=== PATIENT | female | born 1950 | race Caucasian/White ===

== ENCOUNTER 2019-02-09 07:47 | Day surgery (SDC) ==
[2019-02-02 11:25] LABS: BASO# 0.03 X1000 (0.0-0.2); BASO% 0.5 % (0.0-0.8); EOS# 0.14 X1000 (0.0-0.7); EOS% 2.3 % (0.0-10.0); HEMATOCRIT 44.1 % (37.0-47.0); HEMOGLOBIN 14.3 g/dL (12.0-16.0); MCH 28.8 PG (27-31); MCHC 32.4 g/dL (33-37); MCV 88.9 FL (81-99); MONO# 0.36 X1000 (0.11-0.59); MONO% 5.8 % (1.7-9.3); MPV 9.9 FL (7.4-10.4); NEUT# 3.54 X1000 (1.4-6.5); NEUT% 57.4 % (42.2-75.2); PLT 334 X1000 (130-400); RBC 4.96 XMIL (4.2-5.4); RDW 13.8 % (11.5-14.5); WBC 6.17 X1000 (4.8-10.8)
--- NOTE | 2019-02-02 11:52 | EKG Report ---
Test Performed on : 02/02/2019 11:06:32 AM Test Reason : pat Blood Pressure : / mmHG Vent. Rate : 067 BPM Atrial Rate : 067 BPM P-R Int : 148 ms QRS Dur : 088 ms QT Int : 416 ms P-R-T Axes : 051 034 056 degrees QTc Int : 439 ms Normal sinus rhythm. Normal ECG No previous ECGs available Confirmed by Roderick KAHN, [place] ([id number]) on 02/03/2019 8:34:34 AM
[2019-02-02 11:58] LABS: AGAP 14; BUN 17 mg/dL (8-22); CHLORIDE 99 mmol/L (98-107); COSMO 283; CREATININE 0.8 mg/dL (0.5-0.9); ESTIMATED GFR > 60; GLUCOSE 105 mg/dL (70-104); POTASSIUM 3.8 mmol/L (3.5-5.1); SODIUM 141 mmol/L (136-145); TCO2 28 mmol/L (25-35)
--- NOTE | 2019-02-08 09:56 | HISTORY AND PHYSICAL ---
HISTORY: The patient is a 69-year-old female who has been seen by our nurse practitioner Morales with worsening pelvic organ prolapse. Patient has been evaluated in the past by Dr. Janay Olivo and was offered pessary management but she has declined this therapy and is wishing to proceed with surgical intervention. She presented to me because of her desire to not be forced into using a pessary. The risks and benefits of sacrocolpopexy and midurethral sling and supracervical hysterectomy were explained at length to the patient. She understands and is wishing to proceed with surgical intervention. PAST MEDICAL HISTORY: Positive for hypertension, hypercholesterolemia, dystonia, and urinary retention. PAST SURGERY HISTORY: Bilateral tubal ligation and arthroscopy of the knee. 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 CURRENT MEDICATIONS ARE: Atenolol 12 mg and hydrochlorothiazide 25. SOCIAL HISTORY: Negative for tobacco and drugs, occasional ETOH. FAMILY HISTORY: Positive for CT, hypertension, and CVA. PHYSICAL EXAMINATION: GENERAL: Body mass index is 31. HEENT: Normocephalic, atraumatic PERRLA. Extraocular movements are intact, no thyromegaly. CV: Regular rate and rhythm without murmur, gallop, or rub. PULMONARY: Clear to auscultation and percussion. ABDOMEN: Soft. : Shows pop Q Stage 3 prolapse. However, the leading edge is based on TVL point C is -3 with a TVL of 11. This is more than half the transvaginal length. The leading edge is BA +5. NEURO: Afocal.Extremities: Without clubbing, cyanosis, or edema. ASSESSMENT AND PLAN: The patient is admitted at this time for supracervical hysterectomy with sacrocolpopexy and mid urethral sling. The risks and benefits were discussed at length. She understands and wishes to proceed. cc: Segundo Martinez MD
[2019-02-09] MEDS ORDERED: DIPRIVAN 1% ONE (07:53)
[2019-02-09] MEDS ORDERED: XYLOCAINE-MPF 2% ONE (07:53)
[2019-02-09] MEDS ORDERED: QUELICIN (DOSE) ONE (08:05)
[2019-02-09] MEDS ORDERED: SODIUM CHLORIDE 0.9% 10 ML ONE (08:06)
[2019-02-09] MEDS ORDERED: NORCURON ONE (08:06)
[2019-02-09] MEDS ORDERED: ROBINUL ONE ×3 (08:06→14:11)
[2019-02-09] MEDS ORDERED: LR 1,000 ML ONE ×3 (08:54→14:57)
[2019-02-09] MEDS ORDERED: KEFZOL 1 GM/D5W 2 GM/100 ML IVPB ONE (08:54)
--- NOTE | 2019-02-09 11:09 | H&P REVIEW ---
H&P Update H&P Review: H&P was reviewed and patient was examined, No change has occurred in the patient's condition
[2019-02-09] MEDS ORDERED: D10W 1,000 ML ONE (11:25)
[2019-02-09] MEDS ORDERED: MARCAINE 0.25% PF/EPI 1:200,000 ONE (11:25)
[2019-02-09] MEDS ORDERED: OFIRMEV 1000 MG/ISOTONIC SOLN 1,000 MG/100 ML BOTTLE ONE (12:11)
[2019-02-09] MEDS ORDERED: DECADRON ONE ×2 (12:14→12:15)
[2019-02-09] MEDS ORDERED: ZOFRAN ONE (12:14)
[2019-02-09] MEDS ORDERED: TORADOL ONE (12:14)
[2019-02-09] MEDS ORDERED: NEOSTIGMINE ONE (12:21)
[2019-02-09 12:34] LABS: URINE SOURCE CATH
[2019-02-09 12:38] LABS: BILIRUBIN URINE NEGATIVE (NEGATIVE); BLOOD URINE NEGATIVE (NEGATIVE); COLOR YELLOW; GLUCOSE URINE NEGATIVE (NEGATIVE); KETONE URINE NEGATIVE (NEGATIVE); LEUKOCYTES URINE NEGATIVE (NEGATIVE); NITRITE URINE NEGATIVE (NEGATIVE); PH URINE 6.5; PROTEIN URINE NEGATIVE (NEGATIVE); SP GRAVITY URINE 1.008; TURBIDITY URINE CLEAR (CLEAR); UR EPITHELIAL CELLS <10 /HPF (<10); URINE BACTERIA NEGATIVE /HPF; URINE RBC <10 /HPF (<10); URINE WBC <10 /HPF (<10); UROBILINOGEN URINE NORMAL (NORMAL)
[2019-02-09] MEDS ORDERED: LASIX ONE (13:50)
[2019-02-09] MEDS ORDERED: KETAMINE ONE (13:56)
[2019-02-09] MEDS ORDERED: FENTANYL ONE (14:04)
[2019-02-09] MEDS: DILAUDID ONE ×2 (15:04→15:09)
[2019-02-09] MEDS ORDERED: ULTRACET 37.5MG/325MG ONE (15:23)
[2019-02-09] MEDS ORDERED: ZOFRAN ODT PO PRN (15:43)
[2019-02-09] MEDS ORDERED: ULTRACET 37.5MG/325MG PO PRN (15:43)
[2019-02-09] MEDS: TORADOL IV SCH (19:28)
--- NOTE | 2019-02-09 20:46 | PROGRESS NOTE ---
DATE: 02/09/2019 SUBJECTIVE: Patient is alert and oriented x2. Her is in the room with her. OBJECTIVE: Afebrile. Vital signs are stable. ASSESSMENT AND PLAN: Routine postoperative care. Voiding trial in the morning. We will plan on discharge after completion of voiding trial. cc: Segundo Martinez MD
[2019-02-09] MEDS ORDERED: TENORMIN PO SCH (21:00)
[2019-02-09] MEDS ORDERED: LIPITOR PO SCH (21:00)
--- NOTE | 2019-02-09 22:00 | OPERATIVE NOTE ---
PROCEDURE DATE: 02/09/2019 PREOPERATIVE DIAGNOSIS: Symptomatic pelvic organ prolapse. POSTOPERATIVE DIAGNOSIS: Symptomatic pelvic organ prolapse. PROCEDURE: DA Rolando supracervical hysterectomy, abdominal sacrocolpopexy, midurethral sling with Obtryx. SURGEON: Dr. Segundo Martinez. STEAM SETTER: Dr. Kai Mari. ESTIMATED BLOOD LOSS: 50 mL. HISTORY: The patient is a 69-year-old female with worsening symptomatic pelvic organ prolapse, who had been managed with pessary before, but really was not doing well and wished to proceed to surgical intervention. OPERATIVE PROCEDURE: Patient taken to the operating room and placed in the supine position. After adequate general anesthesia was obtained, she was placed in low Yellofin stirrups, and her abdomen and vagina were prepped and draped in the usual fashion. Upon evaluation of the perineum at this time, she easily would have had stage III prolapse. Point BA was at 0 with the patient in the supine position and no Valsalva. We started above abdominally with a supraumbilical incision after infiltration of 0.25% Marcaine with epinephrine. A 12 mm port and sheath were introduced through this incision into the abdominal cavity. Pelvic contents were visualized. Therefore, insufflation with CO2 to an intraabdominal pressure of 14 was performed. Left-sided ports were placed under direct visualization after infiltration with the same local anesthetic, and then the right ports were placed in a similar fashion as well for sacrocolpopexy. The patient was placed in deep Trendelenburg position and the EEA sizers were placed within the vagina and the anus, and a Andrea catheter was placed. The robot was docked in the usual fashion, hot scissors in the right hand, bipolar PK in the left, and arm 3 had a single-tooth tenaculum. With the patient in the deep Trendelenburg position, the tenaculum was utilized to elevate the uterus out of the pelvis. We started initially on the left-hand side. We clamped, cauterized, and cut the uteroovarian pedicle and then continued in clamp, cauterize, and cut fashion through the round ligament and then down the cardinal ligament to the peritoneal fold. We began peritonealization dissection anteriorly, dropping the bladder below the operative site and lowering the ureter away from the uterine vessels. We clamped and cauterized these vessels at multiple sites. We then turned our attention toward the right-hand side and in a similar fashion, clamped, cauterized, and cut the utero-ovarian pedicle, the round ligament, and the cardinal ligament all the way down to the peritoneal fold. We again continued our peritoneal incision from the midline to the right-hand side, and then continued with our dissection of the vesicovaginal space to drop the bladder lower. We clamped and cauterized the vessels on the right side in multiple sites. The patient was noted to have varicosities in the pelvis involving the uterine vasculature as well as the vesical vasculature as we continued our dissection. At this time, we then continued the vesicovaginal plane, dissecting this area out and dropping the bladder well below the operative site. We confirmed the position of the insertion of the uterosacral ligaments bilaterally. We then took the hot scissors and cut across the uterus at the level of the insertion of these ligaments. The corpus of the uterus was extirpated and placed in the appendiceal bed, and the single-tooth tenaculum was utilized to grasp the anterior lip of the cervix. We then continued in the dissection of the vesicovaginal space, staying in the avascular space. We got down to the level of the Andrea bulb. We had multiple large perivesical veins in this area that we had to cauterize because of the large vasculature. We then turned our attention toward the rectovaginal septum. We regrasped the cervical stump with a single-tooth tenaculum, developing the rectovaginal space without any difficulty, staying in the avascular plane. At this time, the single-tooth tenaculum was removed and Cadiere grasper was introduced. We used the Cadiere grasper to deviate the sigmoid and descending colon laterally. The patient was found to have approximately 3 to 4 cm of presacral fat in this area. It was difficult to identify the sacral promontory. However, with dissection and removal of several layers of this fat, we were able to identify the promontory. We initially started this by elevating the peritoneum, opening the space above where we thought the promontory was. We then began removing fat and upon doing this, we were able to identify the promontory promptly and identify the middle sacral vasculature. Because of the difficulty and the depth of this dissection, we placed two [place]umb[place]-Saturnino sutures through the anterior longitudinal ligament while we had this space exposed. [place] were removed and we left these intra- abdominally. At this time, we then created our tunnel, starting at the sacral promontory and going down to our prior posterior dissection. We left the console and then trimmed our mesh. We had approximately 7 cm of mesh in the anterior compartment and approximately 8 cm in the posterior compartment. The third arm was trimmed appropriately as well. The mesh was introduced into the abdominal cavity. The equipment had been changed out to 2 needle drivers, and we reintroduced the [place]umb[place]-Saturnino suture. Starting in the vesicovaginal plane, we began securing the anterior mesh to the anterior vagina in an interrupted fashion with a 2.0 [place]umb[place]-Saturnino suture. All knots were in initial surgeon's throw in 4 throws and half throws after this. We placed approximately 10 to 12 knots in the anterior compartment. We placed 3 to 4 across the cervical stump and then approximately 8 to 10 sutures in the posterior compartment, securing the posterior arm in a similar fashion with the interrupted sutures and using the same knot arrangement. The third arm was then brought up to our prior dissection. The 2 prior sutures were placed through this mesh using the EEA sizers to elevate the cervical stump toward the promontory. We secured these sutures and then excised excessive mesh that had been placed. Upon doing this, we re-examined the anterior mesh and it was lying down smoothly and there were no open spaces, so we turned our attention toward reperitonealization. We used a V-Loc suture to re-peritonealize, starting at the promontory and going down to the bifurcation, and then pursestring suturing around so we had complete closure of that space. After completion of this, copious amounts of irrigation were performed. We dropped our pressures. Hemostasis was observed. We then brought the uterine corpus into the pelvis and undocked the robot. Using straight stick technology, we now turned our attention toward morcellation. The morcellator was placed in the prior assistance port. We morcellated the uterus in one large piece without any difficulty. There was no spitting of tissue throughout the abdomen at all. We again irrigated and closely inspected all pedicles and hemostasis was observed. We removed the morcellator and used a Mxa-Mavis closure system to close the fascia and peritoneum of that area. We used the Max-Mavis also for the camera port. After completion of this, all other ports were removed under direct visualization as the abdomen was deflated. A 4.0 Vicryl ligature was utilized in a subcuticular fashion to reapproximate all 5 skin incisions, and surgical glue was utilized to reapproximate the skin edges. Vaginally, we had excellent support apically and anteriorly as well as posteriorly. We grasped the urethra proximally and distally with Allis clamps, and injected 8 to 10 mL of the same local anesthetic. We made a sagittal incision and dissected up toward the ischial pubic ramus on each side at approximately 10 o'clock and 2 o'clock positions. Based on the bony landmarks of the ischial pubic ramus and the insertion of the adductor longus, a stab incision was initially made on the left-hand side. Halo device was introduced through this incision around the obturator canal to the garland machine operator's finger, which directed the needle out. The mesh was attached to it and was retracted back through the skin. This was performed on the contralateral side in a similar fashion. After completion of this, the Andrea catheter was removed and cystoscope was placed. Both ureters were effluxing urine. There was no evidence of any abnormalities within the bladder, and the urethra was also found to be within normal limits. Cystoscope was removed. Amelia clamp was placed in the midurethral position. The tape was brought out with a Amelia clamp. Blue tag was excised and the sheaths were easily removed. There was no tension on the mesh whatsoever. Midurethral incision was closed with a running 2.0 Vicryl ligature. Sponge count, instrument count, and needle counts were correct x3. Andrea catheter was placed. Rectal examination was performed. The patient was taken out of the low adjustable stirrups. She was awakened and taken to the recovery room with vital signs stable. cc: Segundo Martinez MD
[2019-02-09] MEDS: COLACE PO SCH (22:44)
[2019-02-09] MEDS: PERIDEX MT SCH (22:45)
[2019-02-09] MEDS: LR 1,000 ML IV SCH (23:03)
[2019-02-10] MEDS: TORADOL IV SCH ×2 (00:06→06:34)
[2019-02-10] MEDS: LR 1,000 ML IV SCH ×3 (06:17→09:33)
[2019-02-10] MEDS: COLACE PO SCH (08:07)
[2019-02-10] MEDS: PERIDEX MT SCH (08:07)
[2019-02-10] MEDS ORDERED: HYDROCHLOROTHIAZIDE PO SCH (09:00)
[2019-02-10 11:22] VITALS: BP 100/51
--- NOTE | 2019-02-11 05:43 | DISCHARGE SUMMARY ---
ADMISSION DATE: 02/09/2019 DISCHARGE DATE: 02/10/2019 PRINCIPAL DIAGNOSIS: Pelvic organ prolapse. PROCEDURE: Da Rolando abdominal sacrocolpopexy, mid urethral sling with Obtryx. HISTORY: The patient is a 69-year-old female who is having worsening symptomatic pelvic organ prolapse. She had been managed with pessary in the past and wished to proceed with surgical intervention. HOSPITAL COURSE: The patient underwent the above-stated procedure. Blood loss at that time was approximately 40 mL. Her postoperative course has been uncomplicated. She is currently undergoing voiding trial, and will be discharged home. FOLLOW-UP: She is to follow up in 3 weeks. DISCHARGE MEDICATIONS: Tramadol and Colace. DISCHARGE INSTRUCTIONS: She was instructed on regular diet and decreased activity. cc: Segundo Martinez MD
== END 2019-02-10 13:40 | disposition home or self-care (01) ==
LOC: 4N 07:47 → OR 07:47
PROVIDERS: ATTEND Obstetrics & Gynecology